=== PATIENT | female | born 1955 | race African-American/Black ===

== ENCOUNTER 2016-08-10 12:43 | Emergency (ER) ==
[2016-08-10] MEDS ORDERED: CATAPRES ONE (17:04)
[2016-08-10] MEDS ORDERED: CATAPRES PO ONE (17:07)
[2016-08-10] MEDS ORDERED: ATIVAN IM ONE (17:38)
[2016-08-10 17:58] VITALS: BP 154/076
--- NOTE | 2016-08-10 18:39 | PROVIDER DOCUMENTATION ---
HPI-Psychological Disorder - General Chief Complaint: Anxiety Stated Complaint: ANXIETY,NOT SLEEPING Time Seen by Provider: 08/10/16 17:08 Source: patient Allergies/Adverse Reactions: Patient Allergies Allergy/AdvReac Type Severity Reaction Status Date / Time Penicillins AdvReac Mild RASH Verified 08/10/16 13:11 Home Medications: Home Medication List Medication Instructions Recorded Confirmed Last Taken Type Irbesartan/Hydrochlorothiazide 1 tab PO DAILY 09/12/14 09/11/15 08/10/16 History [Avalide 300-12.5 mg Tablet] Atorvastatin Calcium [Lipitor] 40 mg PO DAILY 12/29/14 09/11/15 08/10/16 History Escitalopram Oxalate [Lexapro] 1 tab PO DAILY 08/10/16 08/10/16 08/10/16 History Lorazepam [Ativan] 0.5 mg PO BID PRN #8 tablet 08/10/16 Unknown Rx - History of Present Illness-Psych Nature of Presenting Problem: 61 yo female presents to ER with c/o anxiety, depression, and high blood pressure since the murder of her [id number] who she was really close to. She is having problems sleeping. She denies HI or SI. She was placed on lexapro 3 days ago. Onset/Duration: reports: 1 week ago Severity: reports: moderate Situational problems related to:: reports: recent Psychiatric Complaints: reports: angry, agitated, anxiety, depressed, insomnia Substance Use: reports: none/never, denies Patient arrived by:: private car Similar Symptoms Previously?: Yes Recently seen or treated by another doctor?: Yes Review of Systems - Adult - REVIEW OF SYSTEMS - ADULT Constitutional: reports: no symptoms reported Eyes: reports: no symptoms reported Ears, Nose, Mouth & Throat: reports: no symptoms reported Cardiovascular: reports: no symptoms reported Respiratory: reports: no symptoms reported Gastrointestinal: reports: no symptoms reported Genitourinary: reports: no symptoms reported Musculoskeletal: reports: no symptoms reported Integumentary: reports: no symptoms reported Neurological: reports: no symptoms reported Psychiatric: reports: see HPI, anxiety, insomnia Endocrine: reports: no symptoms reported Hematologic/Lymphatic: reports: no symptoms reported Allergic/Immunologic: reports: no symptoms reported All Other Systems: Reviewed and Negative Past History - Adult - PAST MEDICAL HISTORY-ADULT Review of Records: reports: Old Records Reviewed, Nursing Assessment Review, Medications Reviewed, Social history reviewed & non-contributory. Major Childhood Illnesses: reports: denies history Cardiovascular: reports: HTN, hyperlipidemia Respiratory: reports: denies history Gastrointestinal: reports: denies history Obstetrical/Gynecological: reports: denies history Genitourinary: reports: denies history Musculoskeletal: reports: chronic pain (back), orthopedic injury (KNEE) Neurological: reports: denies history Psychiatric: reports: denies history Endocrine/Immune: reports: Diabetes Diabetes Type: Type 2 Other Conditions: reports: denies history - PRIOR SURGERIES/PROCEDURES Surgical/Procedure History: reports: hysterectomy, joint replacement, back/neck - PRIOR HOSPITALIZATIONS Prior Hospitalizations: reports: for other non-related - IMMUNIZATION STATUS Childhood Immunizations: See Nurse Assessment Flu Vaccine: See Nurse Assessment - FAMILY HISTORY Family History: reviewed, not pertinent - SOCIAL HISTORY Smoking: denies, non-smoker Substance Use: none/never, denies Alcohol Use Frequency: never Living Situation: family Physical Exam-Psych Focus - Physical Exam-Psych Initial Vital Signs Reviewed: Yes Appearance: appropriate appearance, appropriate insight, neat, alert, anxious Neurological: alert, oriented x 3, anxious, depressed affect Behavior/Eye Contact/Speech: cooperative, good eye contact, normal speech Thoughts/Hallucinations: normal thought pattern, no apparent hallucination HENMT: normocephalic/atraumatic, moist mucous membranes Respiratory: no respiratory distress Extremity: non-tender, normal inspection, no pedal edema Integumentary: normal color, normal turgor, warm/dry Progress - PLAN OF CARE/RESULTS Progress/Plan/Lab Results: 1834-Discussed with Dr. Olvera; ok to give small amount of ativan for weekend. 1839-Discussed dx/tx/discharge and follow up instructions with patient and spouse; they verbalized understanding. Orders Category Date Time Status Clonidine [Catapres] Med 08/10/16 17:04 Discontinued 0.2 mg .ROUTE .STK-MED ONE Clonidine [Catapres] Med 08/10/16 17:07 Discontinued 0.2 mg PO NOW ONE Lorazepam [Ativan] Med 08/10/16 17:38 Discontinued 2 mg IM NOW ONE Vital Signs - 24 hr 08/10/16 08/10/16 08/10/16 13:05 16:01 16:54 Temperature 98.3 F 98 F Pulse Rate 85 78 70 Respiratory 20 16 18 Rate Blood Pressure 215/102 195/90 218/090 O2 Sat by Pulse 100 100 100 Oximetry 08/10/16 17:57 Temperature Pulse Rate 60 Respiratory 18 Rate Blood Pressure 154/076 O2 Sat by Pulse 99 Oximetry - REASSESSMENT Reassessment #1 Time Reassessed: 18:30 (improved B/P and anxiety ) Status: improving Departure - Departure Time of Disposition Order: 18:51 DIAGNOSIS: Anxiety, Grief reaction Hypertension Qualifiers: Hypertension type: essential hypertension Qualified Code(s): I10 - Essential ( primary) hypertension Disposition: HOME 01 Certified Medical Emergency: Emergent Condition: Good Additional Instructions: Follow up with primary care doctor. ED Follow Up Instructions: You have been treated by a care provider in the Emergency Department. These instructions are being provided to you so you can have an understanding of how to care for yourself upon discharge. Upon discharge from the Emergency Department, you are responsible for making arrangements for follow-up care by a physician of your choice. Take all prescribed medications as directed. Return to the Emergency Department immediately for any new or worsening symptoms. You may call the Physician Referral phone number at [phone] to obtain a list of Physicians who are taking new patients. Prescriptions: Lorazepam [Ativan] 0.5 mg PO BID PRN #8 tablet PRN Reason: Anxiety Referrals: Tammie Torres MD [Primary Care Provider] - Attestation - Physician/ JIN Attestation Patient care was provided by Advanced Practice Provider:: Yes Advanced Practice Provider:: Susan Grace Advanced Practice Provider documentation review:: The Mid-level provider documentation, treatment plan and medical decision making was reviewed by the physician who agrees with all treatment and medical decision making by the MLP.
== END 2016-08-10 19:00 | disposition home or self-care (01) ==
LOC: P.ED 12:43
DX: F43.22 Adjustment disorder with anxiety (principal); I10 Essential (primary) hypertension; R45.4 Irritability and anger; R45.1 Restlessness and agitation; E78.5 Hyperlipidemia, unspecified; G89.29 Other chronic pain; M54.9 Dorsalgia, unspecified; E11.9 Type 2 diabetes mellitus without complications; Z79.899 Other long term (current) drug therapy
CPT/HCPCS: 96372; J2060